=== PATIENT | female | born 1955 | race Caucasian/White ===

== ENCOUNTER 2017-03-18 06:06 | Day surgery (SDC) | payer OTHER ==
[~2017-03-18 06:06] MED LIST: NORVASC5 MG PO; SYNTHROID50 MCG PO; TERBINAFINE HC250 MG PO; TOPROL XL100 M1 PO; ZOCOR20 MG PO
== END 2017-03-18 13:40 | disposition home or self-care (01) ==
LOC: CIR.AMB 06:06
DX: H90.12 Conductive hearing loss, unilateral, left ear, with unrestricted hearing on the contralateral side (principal)